=== PATIENT | female | born 2000 ===

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

== ENCOUNTER 2018-01-15 12:39 | Emergency (ER) | payer MEDICAID ==
[2018-01-15 12:39] VITALS: BMI 22.1
[2018-01-15 13:08] VITALS: TEMP 98
[2018-01-15] MEDS ORDERED: Famotidine 20mg/50ml Premix IVPB STA (14:04)
--- NOTE | 2018-01-15 14:11 | ED PDOC ---
HPI: Abdomen Time Seen by Provider: 01/15/18 13:27 Chief Complaint (Nursing): Abdominal Pain Chief Complaint (Provider): Abdominal Pain History Per: Patient History/Exam Limitations: no limitations Onset/Duration Of Symptoms: Days (x 3), Persistent Location Of Pain/Discomfort: Epigastric Quality Of Discomfort: "Pain" Associated Symptoms: Diarrhea Exacerbating Factors: Food Alleviating Factors: None Additional Complaint(s): 17 year old female with history of thyroid problems presents to the ED with abdominal pain for the last three days associated with diarrhea. Pain is constant but worsens after eating. She was seen for similar symptoms in the past and the doctors recommended a cholecystectomy, which she denied. Currently has dull abdominal pain and ate breakfast this morning. Denies possibility of and oral contraception use. PMD: Dr. Lake Past Medical History Reviewed: Historical Data, Nursing Documentation, Vital Signs Vital Signs: Last Vital Signs Temp 98.0 F 01/15/18 13:06 Pulse 78 01/15/18 13:06 Resp 16 01/15/18 13:06 BP 98/53 L 01/15/18 13:06 Pulse Ox 99 01/15/18 15:56 - Medical History PMH: Anxiety, Bipolar Disorder, Hyperthyroidism (Marcus disease), Hypothyroidism Denies: Anemia, Arthritis, COPD, Depression, Diabetes, Gall Bladder Disease, Hepatitis, HIV, HTN, Osteoporosis, Parkinson's Disease, Personality Disorder, Chronic Kidney Disease, Seizures, Sexually Transmitted Disease - Surgical History Surgical History: Tonsillectomy (Adenoidectomy) - Family History Family History: States: Unknown Family Hx - Immunization History Hx Tetanus Toxoid Vaccination: No Hx Influenza Vaccination: No Hx Pneumococcal Vaccination: No - Home Medications Home Medications: Ambulatory Orders Medication Instructions Recorded Famotidine [Pepcid] 20 mg PO BID #10 tab 06/29/16 Naproxen [Naprosyn Tab] 375 mg PO Q8 PRN #15 tab 06/29/16 Dicyclomine [Bentyl] 20 mg PO BID PRN #30 tab 07/12/16 Omeprazole Magnesium [Prilosec Otc] 20 mg PO DAILY #30 tcp 07/12/16 Ondansetron ODT [Zofran ODT] 4 mg PO Q8 #12 odt 09/28/16 Ibuprofen [Motrin Tab] 800 mg PO Q6H PRN #20 tab 02/11/17 Pantoprazole Sodium [Protonix] 20 mg PO DAILY #15 ect 06/10/17 Amoxicillin 875 mg PO BID #20 tab 08/08/17 Fexofenadine/Pseudoephedrine 1 each PO BID PRN #12 tab.er.12h 08/08/17 [Brigida-D 12 Hour Tablet] Famotidine [Pepcid] 20 mg PO DAILY #14 tab 01/15/18 - Allergies Allergies/Adverse Reactions: Allergies Allergy/AdvReac Type Severity Reaction Status Date / Time No Known Allergies Allergy Verified 08/08/17 02:28 Review of Systems ROS Statement: Except As Marked, All Systems Reviewed And Found Negative Gastrointestinal: Positive for: Abdominal Pain Physical Exam - Reviewed Nursing Documentation Reviewed: Yes Vital Signs Reviewed: Yes - Physical Exam Appears: Positive for: Non-toxic, No Acute Distress Head Exam: Positive for: ATRAUMATIC, NORMAL INSPECTION, NORMOCEPHALIC Skin: Positive for: Normal Color, Warm, Dry Eye Exam: Positive for: EOMI, Normal appearance, PERRL Neck: Positive for: Normal, Painless ROM, Supple Cardiovascular/Chest: Positive for: Regular Rate, Rhythm. Negative for: Murmur Respiratory: Positive for: Normal Breath Sounds. Negative for: Respiratory Distress Gastrointestinal/Abdominal: Positive for: Tenderness (epigastric and RUQ ). Negative for: Other (Lorenzo's sign and RLQ tenderness) Extremity: Positive for: Normal ROM. Negative for: Deformity Neurologic/Psych: Positive for: Alert, Oriented. Negative for: Motor/Sensory Deficits - Laboratory Results Result Diagrams: 01/15/18 14:20 01/15/18 14:20 - ECG O2 Sat by Pulse Oximetry: 99 (RA) Pulse Ox Interpretation: Normal - Progress Re-evaluation Time: 17:31 Condition: Re-examined, Improved Medical Decision Making Medical Decision Making: Time: 14:03 Impression: abdominal pain Differentials include but are not limited to: acute cholecystitis, pancreatitis , gastritis and less likely appendicitis Initial Plan: --CMP --CBC --Lipase --urine preg --Urine dip --Famotidine 20 mg IVPB --Abdomen US Time: 15:44 Abd US FINDINGS: LIVER: Measures 15.1 cm in length. Increased echogenicity of the liver parenchyma. No mass. No intrahepatic bile duct dilatation. GALLBLADDER: Stable appearance of gallbladder with marked wall thickening measuring up to 9 mm. Questionable adenomyomatosis. COMMON BILE DUCT: Stably dilated, measuring 8 mm. No stones visualized. PANCREAS: Unremarkable as visualized. No mass. No ductal dilatation. RIGHT KIDNEY: Measures 10.3 x 3.9 x 5.1 cm in length. Normal echogenicity. No calculus, mass, or hydronephrosis. AORTA: No aneurysmal dilatation. IVC: Unremarkable. OTHER FINDINGS: None . IMPRESSION: Stable marked gallbladder wall thickening measuring up to 9 mm. Questionable adenomyomatosis. Stable dilatation of the CBD measuring up to 8 mm. Clinical correlation is recommended. Scribe Attestation: Documented by Summer Wilder, acting as a scribe for Huma Alexis MD Provider Scribe Attestation: All medical record entries made by the Scribe were at my direction and personally dictated by me. I have reviewed the chart and agree that the record accurately reflects my personal performance of the history, physical exam, medical decision making, and the department course for this patient. I have also personally directed, reviewed, and agree with the discharge instructions and disposition. Disposition - Clinical Impression Clinical Impression: Abdominal pain in female - Patient ED Disposition Is Patient to be Admitted: No Doctor Will See Patient In The: Office Counseled Patient/Family Regarding: Studies Performed, Diagnosis, Need For Followup - Disposition Referrals: Hadley Robison MD [Staff Provider] - Win Kohli MD [Medical Doctor] - Ignacio Lake MD [Family Provider] - Disposition: Routine/Home Disposition Time: 17:31 Condition: GOOD Additional Instructions: Take your medications as instructed. Follow up with your PCP in 2-3 days. Prescriptions: Famotidine [Pepcid] 20 mg PO DAILY #14 tab Instructions: Acute Abdomen (Belly Pain), Acute Abdomen (Belly Pain), Adult (DC )
[2018-01-15] MEDS ORDERED: Famotidine 20mg/50ml 20 MG/50 ML BAG IVPB ONE (14:17)
[2018-01-15 14:37] LABS: ALB/GLOB RATIO 1.5 (1.0-2.1); ALBUMIN 4.3 g/dL (3.5-5.0); ALT/SGPT 33 U/L (9-52); AST/SGOT 23 U/L (14-36); BLOOD UREA NITROGEN 10 mg/dl (7-17); CALCIUM 9.3 mg/dL (8.4-10.2); GFR AFRICAN-AMERICAN > 60; GFR NON-AFRICAN AMERICAN > 60; LIPASE 144 U/L (23-300)
[2018-01-15 14:44] LABS: BASO % 0.7 % (0.0-2.0); EOS # 0.1 K/uL (0.0-0.7); EOS % 1.8 % (0.0-4.0); HEMOGLOBIN 12.7 g/dL (12.0-16.0); LYMPH # 1.9 K/uL (1.0-4.3); LYMPH % 29.5 % (20.0-40.0); MEAN CORPUSCULAR HEMOGLOBIN 26.7 pg (27.0-31.0); MEAN CORPUSCULAR HGB CONC 32.1 g/dL (33.0-37.0); MEAN PLATELET VOLUME 8.6 fl (7.2-11.7); MONO # 0.4 K/uL (0.0-0.8); MONO % 6.8 % (0.0-10.0); NEUT % 61.2 % (50.0-75.0); NRBC % 0.1 % (0.0-0.0); RBC 4.78 Mil/uL (3.80-5.20); RED CELL DISTRIBUTION WIDTH 14.2 % (11.5-14.5); WHITE BLOOD COUNT 6.6 K/uL (4.8-10.8)
--- NOTE | 2018-01-15 15:45 | US ---
HISTORY: abdominal pain COMPARISON: Right upper quadrant ultrasound dated 06/10/2017. TECHNIQUE: Sonographic evaluation of the right upper quadrant of the abdomen. FINDINGS: LIVER: Measures 15.1 cm in length. Increased echogenicity of the liver parenchyma. No mass. No intrahepatic bile duct dilatation. GALLBLADDER: Stable appearance of gallbladder with marked wall thickening measuring up to 9 mm. Questionable adenomyomatosis. COMMON BILE DUCT: Stably dilated, measuring 8 mm. No stones visualized. PANCREAS: Unremarkable as visualized. No mass. No ductal dilatation. RIGHT KIDNEY: Measures 10.3 x 3.9 x 5.1 cm in length. Normal echogenicity. No calculus, mass, or hydronephrosis. AORTA: No aneurysmal dilatation. IVC: Unremarkable. OTHER FINDINGS: None . IMPRESSION: Stable marked gallbladder wall thickening measuring up to 9 mm. Questionable adenomyomatosis. Stable dilatation of the CBD measuring up to 8 mm. Clinical correlation is recommended.
[2018-01-15 17:45] VITALS: BP 112/69; PULSE 81; RESP 14; O2SAT 100
== END 2018-01-15 17:47 | disposition home or self-care (01) ==
LOC: H.ER 12:39
DX: R10.2 Pelvic and perineal pain (principal); E05.90 Thyrotoxicosis, unspecified without thyrotoxic crisis or storm; Z86.59 Personal history of other mental and behavioral disorders

== ENCOUNTER 2018-03-27 23:51 | Emergency (ER) | payer SELFPAY ==
[2018-03-27 23:51] VITALS: BMI 22.1
[2018-03-27 23:58] VITALS: BP 104/71; PULSE 90; RESP 17; TEMP 98.7; O2SAT 99
[2018-03-27] MEDS ORDERED: Sodium Chloride 0.9% 1,000 ML IV STA (23:59)
[2018-03-28 00:34] LABS: BASO % 0.4 % (0.0-2.0); EOS # 0.3 K/uL (0.0-0.7); EOS % 3.6 % (0.0-4.0); HEMOGLOBIN 13.6 g/dL (12.0-16.0); LYMPH # 1.4 K/uL (1.0-4.3); LYMPH % 19.6 % (20.0-40.0); MEAN CELL VOLUME 83.2 fl (81.0-99.0); MEAN CORPUSCULAR HEMOGLOBIN 27.3 pg (27.0-31.0); MEAN CORPUSCULAR HGB CONC 32.8 g/dL (33.0-37.0); MEAN PLATELET VOLUME 8.4 fl (7.2-11.7); MONO # 0.7 K/uL (0.0-0.8); MONO % 9.2 % (0.0-10.0); NEUT # 4.8 K/uL (1.8-7.0); NEUT % 67.2 % (50.0-75.0); RBC 4.99 Mil/uL (3.80-5.20); RED CELL DISTRIBUTION WIDTH 14.3 % (11.5-14.5); WHITE BLOOD COUNT 7.2 K/uL (4.8-10.8)
[2018-03-28 00:55] LABS: SQUAMOUS EPITHIAL 1 /hpf (0-5); URINE BACTERIA RARE (<OCC); URINE BILIRUBIN NEGATIVE (NEGATIVE); URINE BLOOD NEGATIVE (NEGATIVE); URINE CLARITY SLIGHTY-CLOUDY (Clear); URINE COLOR YELLOW (YELLOW); URINE GLUCOSE (UA) NEG (Normal); URINE LEUKOCYTE ESTERASE NEG Leu/uL (Negative); URINE PROTEIN NEGATIVE (NEGATIVE); URINE UROBILINOGEN 0.2-1.0 mg/dL (0.2-1.0)
[2018-03-28 01:02] LABS: ALB/GLOB RATIO 1.4 (1.0-2.1); ALBUMIN 4.3 g/dL (3.5-5.0); ALT/SGPT 29 U/L (9-52); AST/SGOT 48 U/L (14-36); BLOOD UREA NITROGEN 11 mg/dl (7-17); CALCIUM 9.1 mg/dL (8.4-10.2); GFR NON-AFRICAN AMERICAN > 60; LIPASE 83 U/L (23-300)
--- NOTE | 2018-03-28 01:53 | ED PDOC ---
HPI: Abdomen Time Seen by Provider: 03/27/18 23:57 Chief Complaint (Nursing): Abdominal Pain Chief Complaint (Provider): Abdominal Pain History Per: Patient History/Exam Limitations: no limitations Onset/Duration Of Symptoms: Days (x3) Location Of Pain/Discomfort: Diffuse Associated Symptoms: Nausea, Vomiting, Diarrhea. denies: Fever Additional Complaint(s): Jennifer Dial is a 17 year old female with a past medical history of bipolar disorder and substance abuse who is presenting to the ED with complaints of vomiting and diarrhea associated with abdominal pain, onset 3 days ago. Patient states that she vomits every time she tries to eat and reports 3 episodes of non -bloody, non-bilious vomiting, and 6-7 episodes of loose non-bloody diarrhea. She reports that she has an appetite but denies any fevers, cough, or shortness of breath. PMD: none provided Past Medical History Reviewed: Historical Data, Nursing Documentation, Vital Signs Vital Signs: Last Vital Signs Temp 98.7 F 03/27/18 23:55 Pulse 90 03/27/18 23:55 Resp 17 03/27/18 23:55 BP 104/71 03/27/18 23:55 Pulse Ox 99 03/28/18 01:55 - Medical History PMH: Anxiety, Bipolar Disorder, Hyperthyroidism (Marcus disease), Hypothyroidism Denies: Anemia, Arthritis, COPD, Depression, Diabetes, Gall Bladder Disease, Hepatitis, HIV, HTN, Osteoporosis, Parkinson's Disease, Personality Disorder, Chronic Kidney Disease, Seizures, Sexually Transmitted Disease - Surgical History Surgical History: Tonsillectomy (Adenoidectomy) - Family History Family History: States: Unknown Family Hx - Social History Current smoker - smoking cessation education provided: No Alcohol: None Drugs: Denies - Immunization History Hx Tetanus Toxoid Vaccination: No Hx Influenza Vaccination: No Hx Pneumococcal Vaccination: No - Home Medications Home Medications: Ambulatory Orders Medication Instructions Recorded Famotidine [Pepcid] 20 mg PO BID #10 tab 06/29/16 Naproxen [Naprosyn Tab] 375 mg PO Q8 PRN #15 tab 06/29/16 Dicyclomine [Bentyl] 20 mg PO BID PRN #30 tab 07/12/16 Omeprazole Magnesium [Prilosec Otc] 20 mg PO DAILY #30 tcp 07/12/16 Ondansetron ODT [Zofran ODT] 4 mg PO Q8 #12 odt 09/28/16 Ibuprofen [Motrin Tab] 800 mg PO Q6H PRN #20 tab 02/11/17 Pantoprazole Sodium [Protonix] 20 mg PO DAILY #15 ect 06/10/17 Amoxicillin 875 mg PO BID #20 tab 08/08/17 Fexofenadine/Pseudoephedrine 1 each PO BID PRN #12 tab.er.12h 08/08/17 [Brigida-D 12 Hour Tablet] Famotidine [Pepcid] 20 mg PO DAILY #14 tab 01/15/18 Dicyclomine [Bentyl] 20 mg PO Q12 PRN #20 tab 03/28/18 Ondansetron ODT [Zofran ODT] 4 mg PO Q6 PRN #8 odt 03/28/18 - Allergies Allergies/Adverse Reactions: Allergies Allergy/AdvReac Type Severity Reaction Status Date / Time No Known Allergies Allergy Verified 08/08/17 02:28 Review of Systems ROS Statement: Except As Marked, All Systems Reviewed And Found Negative Constitutional: Negative for: Fever Respiratory: Negative for: Cough, Shortness of Breath Gastrointestinal: Positive for: Nausea, Vomiting, Abdominal Pain, Diarrhea Physical Exam - Reviewed Nursing Documentation Reviewed: Yes Vital Signs Reviewed: Yes - Physical Exam Appears: Positive for: Non-toxic, No Acute Distress Head Exam: Positive for: ATRAUMATIC, NORMAL INSPECTION, NORMOCEPHALIC Skin: Positive for: Normal Color, Warm, DRY Eye Exam: Positive for: EOMI, Normal appearance, PERRL ENT: Positive for: Normal ENT Inspection Neck: Positive for: Normal, Painless ROM Cardiovascular/Chest: Positive for: Regular Rate, Rhythm. Negative for: Murmur Respiratory: Positive for: Normal Breath Sounds. Negative for: Respiratory Distress Gastrointestinal/Abdominal: Positive for: Soft, Tenderness (mild diffuse tenderness) Back: Positive for: Normal Inspection. Negative for: L CVA Tenderness, R CVA Tenderness, Vertebral Tenderness Extremity: Positive for: Normal ROM. Negative for: Deformity, Swelling Neurologic/Psych: Positive for: Alert, Oriented. Negative for: Motor/Sensory Deficits - Laboratory Results Result Diagrams: 03/28/18 00:22 03/28/18 00:22 - ECG O2 Sat by Pulse Oximetry: 99 (RA) Pulse Ox Interpretation: Normal Medical Decision Making Medical Decision Making: Time: 23:58 Impression: 17 year old female with acute gastroenteritis Plan: --CMP --Lipase --ED Urine --ED Urine Dipstick --CBC --Bentyl 20 mg PO --IV Fluids --Zofran 4 mg IV --Urinalysis 2:00 Labs were reviewed with no clinically significant abnormalities. Patient reports significant improvement in symptoms. Upon provider evaluation, patient is medically stable and ready for discharge home. Patient advised to follow up with PMD and return precautions were given. Scribe Attestation: Documented by Nica Leija, acting as a scribe for Alex Pace MD. Provider Scribe Attestation: All medical record entries made by the Scribe were at my direction and personally dictated by me. I have reviewed the chart and agree that the record accurately reflects my personal performance of the history, physical exam, medical decision making, and the department course for this patient. I have also personally directed, reviewed, and agree with the discharge instructions and disposition. Disposition - Clinical Impression Clinical Impression: Gastroenteritis - Patient ED Disposition Is Patient to be Admitted: No - Disposition Disposition: Routine/Home Disposition Time: 02:05 Condition: STABLE Prescriptions: Dicyclomine [Bentyl] 20 mg PO Q12 PRN #20 tab PRN Reason: abdominal pain/diarrhea Ondansetron ODT [Zofran ODT] 4 mg PO Q6 PRN #8 odt PRN Reason: Nausea/Vomiting Instructions: Gastroenteritis (ED) Forms: [place] ([place])
== END 2018-03-28 02:00 | disposition home or self-care (01) ==
LOC: H.ER 23:51
DX: K52.9 Noninfective gastroenteritis and colitis, unspecified (principal); Z86.59 Personal history of other mental and behavioral disorders; E05.90 Thyrotoxicosis, unspecified without thyrotoxic crisis or storm
CPT/HCPCS: 80053; 81003; 81025; 83690; 85025; 96360; 99283; J2405; J7030